=== PATIENT | female | born 1955 | race Caucasian/White ===

== ENCOUNTER → 2017-06-05 09:52 | Outpatient (CLI) | payer OTHER ==
[2016-01-29 21:04] VITALS: BMI 37.8
[~2017-06-05 09:52] MED LIST: ATIVAN0.5 MG PO; COUMADIN5 MG PO; HYDROCHLOROTHIA25 MG PO; LIPITOR10 MG PO; LISINOPRIL-HCTZ1 TA2 PO; MS CONTIN30 MG PO; NEURONTIN 300300 MG PO; NORCO 5/325 TAB1 TA1 PO; NORCO 7.5/325 T1 TA1 PO; OXYCONTIN10 MG PO; PRINIVIL10 MG PO; ULTRAM50 MG PO; ZANTAC150 MG PO
[2017-06-05 10:41] LABS: T4 THYROXIN - FREE 0.86 ng/dL (0.76-1.46); THYROID STIMULATING HORMONE 1.69 uIU/mL (0.36-3.74)
[2017-06-06 10:17] LABS: FOLATE (FOLIC ACID) - SERUM 8.1 ng/mL (>3.0)
== END | disposition home or self-care (01) ==
LOC: D.LAB 09:52
PROVIDERS: Psychiatry & Neurology Neurology
DX: G25.0 Essential tremor (principal)

== ENCOUNTER → 2018-01-27 20:30 | Outpatient (CLI) | payer OTHER ==
[2016-01-29 21:04] VITALS: BMI 37.8
== END | disposition home or self-care (01) ==
LOC: D.MAMMO 15:30
DX: Z12.31 Encounter for screening mammogram for malignant neoplasm of breast (principal)

== ENCOUNTER → 2018-03-06 08:38 | Outpatient (CLI) | payer OTHER ==
[2016-01-29 21:04] VITALS: BMI 37.8
== END | disposition home or self-care (01) ==
LOC: D.RT 08:38
DX: R06.02 Shortness of breath (principal)

== ENCOUNTER → 2019-03-06 20:21 | Outpatient (CLI) | payer OTHER ==
[2016-01-29 21:04] VITALS: BMI 37.8
== END | disposition home or self-care (01) ==
LOC: D.MAMMO 15:45
PROVIDERS: ATTEND Family Medicine
DX: Z12.31 Encounter for screening mammogram for malignant neoplasm of breast (principal)

== ENCOUNTER → 2019-05-06 13:31 | Outpatient (CLI) | payer OTHER ==
[2016-01-29 21:04] VITALS: BMI 37.8
--- NOTE | 2019-05-12 09:53 | EC ---
PATIENT:SOFIE JUAN DATE OF SERVICE: 05/06/19 SEX: F MEDICAL RECORD: [id number] DATE OF : [birth year] [facility] AGE OF PATIENT: 63 ADMISSION DATE: 05/06/19 REFERRING PHYSICIAN: INTERPRETING PHYSICIAN: MICHAEL JARRETT MD ECHOCARDIOGRAM REPORT ECHO CHARGES 4 ECHO COMPLETE Date: 05/06/19 CLINICAL DIAGNOSIS: ASSESS EF/DYSPNEA ECHOCARDIOGRAPHIC MEASUREMENTS (adult normal given) AC root (d.<3.7cm) 3.6 cm LV Septum d (<1.2 cm> 1.5 cm Valve Excursion 1.4 cm LV Septum (systole) 1.6 cm Left Atria (s.<4.0cm> 4.7 cm LVPW d(<1.2cm) 1.8 cm RV (d.<2.3cm) 3.3 cm LVPW (sytole) 2.0 cm LV diastole(<5.6CM) 5.1 cm MV E-F(>70mm/sec) cm LV systole 3.3 cm LVOT Diameter 2.0 cm MV exc.(>10mm) 0.90 cm Est.ejection fraction (50-75%) % DOPPLER: LVIT cm/sec A 77.0 cm/sec E 51.0 cm/sec LA cm/sec RVSP 25 mmHg LVOT 103 cm/sec AOP1/2T m/s Asc. Ao 121 cm/sec RVOT 80 cm/sec RA cm/sec PA 91 cm/sec AV Gradient Peak 5.90 mmHg AV Mean 3.19 mmHg AV Area 2.7 cm MV Gradient Peak 3.90 mmHg MV Mean 1.56 mmHg MV Area cm COMMENTS: Kitchen Clerk: Yani GERMAN Director Of Employer Services: 1 Dr. Jarrett TAPE# PACS Pericardial Effusion N DATE OF SERVICE: 05/06/2019 ECHOCARDIOGRAM DATE OF SERVICE: 05/06/2019 FINDINGS: 1. Left ventricular chamber size is within normal limits. Left ventricular systolic function is normal. Overall ejection fraction estimated at 60%. 2. Left atrium is dilated at 4.7 cm. Right atrium and right ventricular ECHOCARDIOGRAM REPORT [id number] SOFIE JUAN chamber sizes are within normal limits. 3. Valvular structures have normal structure and motion. 4. Doppler interrogation reveals no significant valvular insufficiency or stenosis and pulmonary systolic pressure is normal estimated at 25 mmHg. 5. No evidence of pericardial effusion or left ventricular thrombus. TRANSINT:[id number] Voice Confirmation ID: [id number] DOCUMENT ID: [id number] MICHAEL JARRETT MD at 0953 CC: [id number] DICTATION DATE: 05/07/19 1247 PHYSICAL DIRECTOR: 05/07/19 1310 DEP CLI 05/06/19 [place] [id number]
== END | disposition home or self-care (01) ==
LOC: D.HCCARDIO 13:31
PROVIDERS: ATTEND Internal Medicine Interventional Cardiology
DX: R07.89 Other chest pain (principal)

== ENCOUNTER → 2019-05-11 11:20 | Outpatient (CLI) | payer OTHER ==
[2016-01-29 21:04] VITALS: BMI 37.8
--- NOTE | 2019-05-12 09:53 | ST ---
PATIENT:SOFIE JUAN MEDICAL RECORD: [id number] SEX: F LOCATION:[facility] ORDER #: ADMISSION DATE: 05/11/19 AGE OF PATIENT: 63 REFERRING PHYSICIAN: INTERPRETING PHYSICIAN: MICHAEL ANTOINE MD DATE OF SERVICE: 05/11/2019 PROCEDURE: Nuclear stress test. INDICATION: Angina, hypertension, shortness of breath. She was exercised on standard Lexiscan protocol with 32 mCi of sestamibi injected at peak stress, 10 mCi used previously for rest images. FINDINGS: Gated SPECT reveals preserved ejection fraction at 61% with good wall motion and thickening and brightening throughout all segments. SPECT imaging Cardiolite was used as myocardial fusion agent. There is homogeneous uptake throughout all segments at rest and stress with no evidence of inducible ischemia or previous infarction. OVERALL IMPRESSION: 1. This is a normal nuclear stress test with no evidence of inducible ischemia or previous infarction. 2. Gated SPECT reveals a preserved ejection fraction at 61%. In this patient with ongoing symptomatology, the current scan does not suggest the presence of hemodynamically significant coronary artery disease. Evaluate noncardiac etiology of chest pain. TRANSINT:[id number] Voice Confirmation ID: [id number] DOCUMENT ID: [id number] MICHAEL ANTOINE MD at 0953 CC: [id number] DICTATION DATE: 05/11/19 1723 ACCOUNTING MANAGER: 05/12/19 0127 DEP CLI 05/11/19 [place] [id number] [place] [address]
== END | disposition home or self-care (01) ==
LOC: D.HCCARDIO 11:20
PROVIDERS: ATTEND Internal Medicine Interventional Cardiology
DX: I20.9 Angina pectoris, unspecified (principal); I10 Essential (primary) hypertension; R06.02 Shortness of breath

== ENCOUNTER 2021-03-07 19:00 | Outpatient (CLI) | payer OTHER ==
[2016-01-29 21:04] VITALS: BMI 37.8
== END 2021-03-07 23:59 | disposition home or self-care (01) ==
LOC: D.MAMMO 19:00
PROVIDERS: ATTEND Family Medicine
DX: Z12.31 Encounter for screening mammogram for malignant neoplasm of breast (principal)